=== PATIENT | male | born 1985 | race Caucasian/White ===

== ENCOUNTER 2020-09-30 16:24 | Emergency (ER) | payer OTHER, SELFPAY ==
[2020-09-30 16:26] VITALS: BP 113/71; PULSE 104; RESP 16; TEMP 36.9; O2SAT 100
--- NOTE | 2020-09-30 16:55 | PC.NURSE ---
This Rn agrees with triage note. Pt taken to room 19 and given call light
--- NOTE | 2020-09-30 17:43 | ED.SKABFB ---
HPI - Skin/Abscess/Foreign Bdy General Chief complaint: Wound/Laceration Stated complaint: cyst on back of neck Time Seen by Provider: 09/30/20 17:39 History of Present Illness HPI narrative: 35 yo male presents to the ED for an abscess. He reports that he has had a lump on the back of his neck for years. Over the past several days it has grown much larger and become very painful. He has had a few of these in the past requiring drainage. Denies systemic symptoms. Related Data Allergies Allergy/AdvReac Type Severity Reaction Status Date / Time No Known Allergies Allergy Verified 09/30/20 16:29 Review of Systems Review of Systems: All systems reviewed & are unremarkable except as noted in HPI and below Constitutional: Constitutional: Denies chills, Denies fever(s) and Denies weakness ENT: Denies dizziness Cardiovascular: Cardiovascular: Denies chest pain Respiratory: Respiratory: Denies dyspnea Gastrointestinal: Gastrointestinal: Denies nausea Integumentary/Breasts: Skin/Breast: Denies rash and Denies skin ulcer Neurologic: Denies numbness and Denies weakness [facility] Surgical History Surgical History (Updated 10/01/20 @ 17:39 by Amish Burr MD) History of incision and drainage Social History Social History Gender identity (if verbalized by the patient): Male Exam Const: General: healthy appearing, no acute distress and alert Orientation/consciousness: patient oriented x3 HENMT: Head: normal to inspection Eyes: Pupils: Equal, round and reactive pupils present EOM: EOMs intact bilaterally Neck: Other: 3 cm erythematous mass with fluctuant center on right posterior neck Resp: Effort & Inspection: normal respiratory effort Auscultation: clear to auscultation bilaterally Cardio: Rate: regular rate Rhythm: regular rhythm Skin: General skin exam: normal color Psych: Affect: Anxious affect present Course Vital Signs Vital signs: Vital Signs Temperature 36.9 C 09/30/20 16:26 Pulse Rate 104 H 09/30/20 16:26 Respiratory Rate 16 09/30/20 16:26 Blood Pressure 113/71 09/30/20 16:26 Pulse Oximetry 100 09/30/20 16:26 Temperature 36.9 C 09/30/20 16:26 Pulse Rate 104 H 09/30/20 16:26 Respiratory Rate 16 09/30/20 16:26 Blood Pressure 113/71 09/30/20 16:26 Pulse Oximetry 100 09/30/20 16:26 Procedures Abscess I/D neck: Date of Incision: 09/30/20 Side (if applicable): right Local Anesthetic: lidocaine 1% and with epi Amount of anesthesia used (mL): 3 Technique: incised with #11 blade Amount of fluid expressed (mL): 4 Irrigation: Yes Packing used?: none I&D Results: Pus Complications: pain Abcess I&D Additional Comments: The abscess was mostly incised and washed out. There seemd to be some residual purulent material inside. The patient refused to allow me to complete the procedure or pack the wound. I told him that this increased the likely santiago that it will come back. Discharge Plan Discharge Clinical Impression: Abscess of neck Patient Disposition: Home, Self-Care Condition: Stable Instructions: Antibiotic Form, Abscess (ED) Prescriptions: New sulfamethoxazole-trimethoprim [Bactrim DS] 800-160 mg tablet 1 tablet PO Q12H Qty: 14 RF: 0 Follow-up/Referrals: Chandrika,Mannie Rice MD [Primary Care Provider] -
== END 2020-09-30 18:15 | disposition home or self-care (01) ==
PROVIDERS: Emergency Provider Emergency Medicine; PCP Family Medicine
DX: L02.11 Cutaneous abscess of neck (principal)
CPT/HCPCS: 10060; 99283; J0171

== ENCOUNTER 2021-03-22 16:02 | Emergency (ER) | payer OTHER, SELFPAY ==
--- NOTE | ~2021-03-22 | XR_ITS ---
EXAMINATION: XR shoulder LT min 2V DATE: 03/22/2021 17:02 INDICATION: Left shoulder pain. TECHNIQUE: 4 views of left shoulder were obtained. COMPARISON: None. FINDINGS: Bone alignment is normal. No fracture. Joint spaces are well maintained. IMPRESSION: 1. Normal left shoulder. Reviewed, dictated and finalized at location A. IMPRESSION: 1. Normal left shoulder.
[2021-03-22 16:16] VITALS: BP 111/75; PULSE 94; RESP 16; TEMP 37.1; O2SAT 99
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
== END 2021-03-22 17:16 | disposition home or self-care (01) ==
PROVIDERS: Emergency Provider Nurse Practitioner; PCP Family Medicine
DX: S43.422A Sprain of left rotator cuff capsule, initial encounter (principal); V18.4XXA Pedal cycle driver injured in noncollision transport accident in traffic accident, initial encounter; F17.210 Nicotine dependence, cigarettes, uncomplicated
CPT/HCPCS: 73030; 99213; A4565; G0463